=== PATIENT | female | born 1980 | race Hispanic/Latino ===

== ENCOUNTER 2023-06-07 08:14 | Day surgery (SDC) | payer BC ==
[2023-06-07] VITALS (22 sets, daily range): BP systolic 106–168; BP diastolic 67–98; PULSE 65–94; RESP 14–16
[~2023-06-07 08:14] MED LIST: 0.9%NACL 1000ML 1,000 ML IV ONE; ATOR10TA69 PO; BUSP7.5T7 PO; DULO60CA64 PO; DULOXETINE; LINA145C PO; LISI10TA24 PO; MELO5CAP3 PO; METF-527 PO; METH-812 PO; [UNRECOGNIZED DRUG - OTHER] SQ
[2023-06-07] MEDS ORDERED: LIDOCAINE PF 100MG/5ML (2%) SYRINGE 5ML ONE (11:11)
[2023-06-07] MEDS ORDERED: PROPOFOL 10 MG/ML 20ML VIAL IV ONE ×2 (11:11→11:32)
[2023-06-07] MEDS: HYDRALAZINE 20MG/ML VIAL ONE (12:48)
== END 2023-06-07 14:00 | disposition home or self-care (01) ==
LOC: DAH 08:14 → ENDO 08:14
PROVIDERS: ATTEND Surgery
DX: R93.3 Abnormal findings on diagnostic imaging of other parts of digestive tract (principal); K59.04 Chronic idiopathic constipation; R10.12 Left upper quadrant pain; R14.0 Abdominal distension (gaseous); K57.30 Diverticulosis of large intestine without perforation or abscess without bleeding; K64.9 Unspecified hemorrhoids; D12.5 Benign neoplasm of sigmoid colon; D12.4 Benign neoplasm of descending colon; D12.3 Benign neoplasm of transverse colon; I10 Essential (primary) hypertension; J45.909 Unspecified asthma, uncomplicated; E11.9 Type 2 diabetes mellitus without complications; F41.9 Anxiety disorder, unspecified; F32.A Depression, unspecified; E78.00 Pure hypercholesterolemia, unspecified; M79.7 Fibromyalgia; E66.9 Obesity, unspecified; Z88.8 Allergy status to other drugs, medicaments and biological substances; Z79.84 Long term (current) use of oral hypoglycemic drugs; Z79.899 Other long term (current) drug therapy; Z68.30 Body mass index [BMI] 30.0-30.9, adult; Z88.0 Allergy status to penicillin
CPT/HCPCS: 81025; 45380; J7030; J2001; J0360; J2704 ×2; A4620; A4215; J3490